=== PATIENT | female | born 1950 | race Caucasian/White ===

== ENCOUNTER 2018-04-17 06:48 | Day surgery (SDC) | payer MEDICARE ==
[~2018-04-17] VITALS: Ht 160 cm; Wt 60.5 kg
[~2018-04-17 06:48] MED LIST: SODIUM CHLORIDE 0.9% 1,000 ML IV ONE
[2018-04-17] MEDS ORDERED: ALBUTEROL SULFATE 2.5 MG/0.5 ML NEB SOLUTION NEB ONE (06:49)
[2018-04-17] MEDS ORDERED: LIDOCAINE HCL 4% 50 ML SOLUTION TP ONE (06:49)
[2018-04-17] MEDS ORDERED: LIDOCAINE HCL 2% 30 ML JELLY TP ONE (06:49)
[2018-04-17] MEDS ORDERED: BENZOCAINE 20% 50 MCG/SPRAY 57 GM TP ONE (06:49)
[2018-04-17] MEDS ORDERED: ATOR40TA28 PO (07:29)
[2018-04-17] MEDS ORDERED: ALBU8HFA IH (07:29)
[2018-04-17] MEDS ORDERED: GABA-531 PO (07:29)
[2018-04-17] MEDS ORDERED: MONT10TA21 PO (07:29)
[2018-04-17] MEDS ORDERED: BACL10TA PO (07:29)
[2018-04-17] MEDS ORDERED: FAMO20 PO (07:29)
[2018-04-17] MEDS ORDERED: SITA100 PO (07:29)
[2018-04-17] MEDS ORDERED: METF500T7 PO (07:29)
[2018-04-17] MEDS ORDERED: INSLAN SQ (07:29)
[2018-04-17] MEDS ORDERED: FentaNYL CITRATE-PF 100 MCG/2 ML VIAL ONE (07:56)
[2018-04-17] MEDS ORDERED: MIDAZOLAM HCL 2 MG/2 ML VIAL ONE (07:56)
[2018-04-17] MEDS ORDERED: SODIUM CHLORIDE 0.9% 1,000 ML IV ONE (08:00)
[2018-04-17 08:08] LABS: GLUCOMETER DEV NAME(LOC) SDS 5; GLUCOSE,POINT OF CARE 124 MG/DL (70-110)
[2018-04-17] MEDS ORDERED: MethylPREDNISolone SOD SUCC 125 MG/2 ML VIAL IVP ONE (09:45)
[2018-04-17] MEDS ORDERED: MethylPREDNISolone SOD SUCC 125 MG/2 ML VIAL ONE (10:04)
[2018-04-17] MEDS ORDERED: OXYGEN THERAPY IH SCH (20:00)
== END 2018-04-17 11:00 | disposition home or self-care (01) ==
LOC: SURGERY 06:48
PROVIDERS: ATTEND Internal Medicine Critical Care Medicine
DX: J38.4 Edema of larynx (principal); B37.0 Candidal stomatitis; K21.9 Gastro-esophageal reflux disease without esophagitis; E11.9 Type 2 diabetes mellitus without complications; J47.9 Bronchiectasis, uncomplicated; I25.10 Atherosclerotic heart disease of native coronary artery without angina pectoris; M47.814 Spondylosis without myelopathy or radiculopathy, thoracic region; E78.00 Pure hypercholesterolemia, unspecified; Z79.84 Long term (current) use of oral hypoglycemic drugs; Z87.891 Personal history of nicotine dependence; Z88.5 Allergy status to narcotic agent; Z88.6 Allergy status to analgesic agent; Z90.710 Acquired absence of both cervix and uterus; Z90.49 Acquired absence of other specified parts of digestive tract; Z90.89 Acquired absence of other organs; Z87.01 Personal history of pneumonia (recurrent); Z79.4 Long term (current) use of insulin; Z79.891 Long term (current) use of opiate analgesic; Z98.890 Other specified postprocedural states; Z79.899 Other long term (current) drug therapy
CPT/HCPCS: 31623; 31624; 71045; 71250; 82962; 87015; 87070; 87205; 87206; 87220; 88108; 88312; J2250; J2930; J3010; J7030